=== PATIENT | male | born 1980 | race Caucasian/White ===

== ENCOUNTER 2019-12-02 00:33 | Emergency (ER) | payer BC ==
[~2019-12-02] VITALS: Ht 177.8 cm; Wt 95.3 kg
[~2019-12-02 00:33] MED LIST: DOXYCYCLINE 10100 MG PO; FLEXERIL; NORCO 5-325 TA1 EACH PO; PAIN MED; PERCOCET 5-3251 EACH PO; SEROQUEL 100 M100 M1; ULTRAM 50MG TAB50 MG PO
[2019-12-02] MEDS ORDERED: HYDROCODON-ACE1 EAC8 PO (01:51)
[2019-12-02 02:18] VITALS: BP 132/86
== END 2019-12-02 02:19 | disposition home or self-care (01) ==
LOC: M.ERS 00:33
DX: S93.692A Other sprain of left foot, initial encounter (principal); G43.909 Migraine, unspecified, not intractable, without status migrainosus; F17.210 Nicotine dependence, cigarettes, uncomplicated; X50.1XXA Overexertion from prolonged static or awkward postures, initial encounter; Y93.E2 Activity, laundry; Y92.89 Other specified places as the place of occurrence of the external cause; Y99.8 Other external cause status